=== PATIENT | female | born 1995 | race African-American/Black ===

== ENCOUNTER 2017-04-15 18:57 | Emergency (ER) | payer MEDICAID, OTHER ==
[~2017-04-15] VITALS: Ht 182.9 cm; Wt 111.4 kg
[2017-04-15 19:02] VITALS: BP 136/88
[2017-04-15] MEDS ORDERED: IBUPROFEN 200 MG TABLET PO ONE (19:30)
[2017-04-15] MEDS ORDERED: IBUPROFEN 200 MG TABLET ONE (19:32)
== END 2017-04-15 19:39 | disposition home or self-care (01) ==
LOC: ED 19:33
DX: J20.8 Acute bronchitis due to other specified organisms (principal); B96.89 Other specified bacterial agents as the cause of diseases classified elsewhere
CPT/HCPCS: 99283

== ENCOUNTER 2018-09-19 10:56 | Emergency (ER) | payer MEDICAID ==
[~2018-09-19] VITALS: Ht 190.5 cm; Wt 113.0 kg
[2018-09-19 11:59] LABS: BASOPHILS # (AUTO) 0.12 x10^3/uL (0-0.1); BASOPHILS % (AUTO) 2 % (0-1); EOSINOPHILS # (AUTO) 0.06 x10^3/uL (0-0.4); EOSINOPHILS % (AUTO) 1 % (1-7); LYMPHOCYTES # (AUTO) 2.34 x10^3/uL (1-3.4); LYMPHOCYTES % (AUTO) 30 % (22-44); MD NO; MEAN CORPUSCULAR HEMOGLOBIN 27.5 pg (27.0-34.8); MEAN CORPUSCULAR HGB CONC 32.1 g/dL (32.4-35.8); MEAN CORPUSCULAR VOLUME 85.7 fL (80-100); MEAN PLATELET VOLUME 9.6 fL (7.4-10.4); MONOCYTES # (AUTO) 0.52 x10^3/uL (0.2-0.8); MONOCYTES % (AUTO) 7 % (2-9); NEUTROPHILS # (AUTO) 4.71 x10^3/uL (1.8-6.8); NEUTROPHILS % (AUTO) 61 % (42-75); PLATELET COUNT 281 x10^3/uL (130-400); RED BLOOD COUNT 4.38 x10^6/uL (3.82-5.3); RED CELL DISTRIBUTION WIDTH 16.4 % (9.6-15.2)
[2018-09-19 12:58] LABS: CULTURE INDICATED? YES; MICROSCOPIC INDICATED
[2018-09-19 13:24] VITALS: BP 109/50
== END 2018-09-19 13:26 | disposition home or self-care (01) ==
LOC: ED 12:00
DX: O20.0 Threatened abortion (principal); O23.31 Infections of other parts of urinary tract in pregnancy, first trimester; Z3A.08 8 weeks gestation of pregnancy
CPT/HCPCS: 36415; 76801; 81001; 84702; 85025; 86901; 87086; 99285

== ENCOUNTER 2019-05-03 17:37 | Emergency (ER) | payer MEDICAID ==
[~2019-05-03] VITALS: Ht 182.9 cm; Wt 127.0 kg
[2019-05-03 17:39] VITALS: BP 131/79
--- NOTE | 2019-05-03 18:05 | NUR ---
IS AT [facility] SONOGRAM OF WOUNDS
[2019-05-03] MEDS ORDERED: SULFAMETH./TRIMETHOPRIM DS 800MG/160MG TABLET ONE (18:12)
[2019-05-03] MEDS ORDERED: CEPHALEXIN 500 MG CAPSULE ONE (18:12)
[2019-05-03] MEDS ORDERED: SULFAMETH./TRIMETHOPRIM DS 800MG/160MG TABLET PO ONE (18:30)
[2019-05-03] MEDS ORDERED: CEPHALEXIN 500 MG CAPSULE PO ONE (18:30)
== END 2019-05-03 18:22 | disposition home or self-care (01) ==
LOC: ED 18:16
DX: L03.115 Cellulitis of right lower limb (principal)
CPT/HCPCS: 99283; 99284